=== PATIENT | female | born 1980 | race Asian ===

== ENCOUNTER 2017-02-11 14:07 | Inpatient (IN) | payer SELFPAY ==
[~2017-02-11] VITALS: Ht 163 cm; Wt 59.9 kg
[2017-02-11] MEDS ORDERED: LACTATED RINGERS 1,000 ML IV SCH (14:28)
[2017-02-11] MEDS ORDERED: CITRIC ACID/SODIUM CITRATE 30 ML UDC PO SCH (14:30)
[2017-02-11 14:38] VITALS: BP 112/81
[2017-02-11 15:26] LABS: BASOPHILS # (AUTO) 0.1 K/uL (0.00-0.22); BASOPHILS % (AUTO) 1.2 % (0.0-2.0); EOSINOPHILS # (AUTO) 0.1 K/uL (0-0.4); HEMOGLOBIN 11.6 g/dL (12.0-16.0); LYMPHOCYTES # (AUTO) 1.5 K/uL (2.5-16.5); LYMPHOCYTES % (AUTO) 21.6 % (20.5-51.1); MEAN CORPUSCULAR HEMOGLOBIN 31 pg (27-31); MEAN CORPUSCULAR HGB CONC 33 g/dL (33-37); MEAN CORPUSCULAR VOLUME 93 fL (80-94); MONOCYTES # (AUTO) 0.5 K/uL (0.8-1.0); MONOCYTES % (AUTO) 7.2 % (1.7-9.3); NEUTROPHILS # (AUTO) 4.6 K/uL (1.8-7.7); PLATELET COUNT (AUTO) 180 K/uL (140-450); RED BLOOD CELL COUNT(AUTO) 3.76 MIL/uL (4.20-5.40); RED CELL DISTRIBUTION WIDTH 13.4 % (11.6-13.7); WHITE BLOOD COUNT (AUTO) 6.8 K/uL (4.8-10.8)
[2017-02-11 15:32] LABS: APPEARANCE,URINE CLOUDY (CLEAR); BILIRUBIN,URINE NEGATIVE (NEGATIVE); BLOOD, URINE NEGATIVE (NEGATIVE); COLOR,URINE YELLOW (YELLOW); LEUKOCYTE ESTERASE ,URINE NEGATIVE (NEGATIVE); NITRITE, URINE NEGATIVE (NEGATIVE); UGLUCOSE NEGATIVE (NEGATIVE)
[2017-02-11 15:41] LABS: ALBUMIN 3.1 g/dL (3.4-5.0); ANION GAP 11.6 (8-16); CARBON DIOXIDE 28.6 mmol/L (21-32); CREATININE 0.7 mg/dL (0.6-1.3); POTASSIUM 4.2 mmol/L (3.5-5.1); TOTAL BILIRUBIN 0.7 mg/dL (0.0-1.0)
[2017-02-11] MEDS ORDERED: SIMETHICONE 80 MG TAB.CHEW PO PRN (16:50)
[2017-02-11] MEDS ORDERED: METHYLERGONOVINE 0.2 MG/ML AMP IM PRN (16:50)
[2017-02-11] MEDS ORDERED: MEASLES, MUMPS, AND RUBELLA 1 VIAL SQVAC PRN (16:50)
[2017-02-11] MEDS ORDERED: TEMAZEPAM 15 MG CAP PO PRN (16:50)
[2017-02-11] MEDS ORDERED: HYDROcodone/APAP 5/325 MG 1 TAB TAB PO PRN (16:50)
[2017-02-11] MEDS ORDERED: TRIMETHOBENZAMIDE 200 MG/2 ML SYR IM PRN (16:50)
[2017-02-11] MEDS ORDERED: oxyCODONE/APAP 5/325 MG 1 TAB TAB PO PRN (16:50)
[2017-02-11] MEDS ORDERED: IBUPROFEN 800 MG TAB PO PRN (16:50)
[2017-02-11] MEDS ORDERED: MORPHINE PRES FREE 10 MG/10 ML AMP IV ONE (17:26)
[2017-02-11] MEDS ORDERED: ONDANSETRON 4 MG/2 ML VIAL ONE (17:57)
[2017-02-11] MEDS ORDERED: OXYTOCIN 10 UNITS/ML VIAL ONE (18:02)
[2017-02-11] MEDS ORDERED: diphenhydrAMINE 50 MG/ML VIAL IVP PRN (18:15)
[2017-02-11] MEDS ORDERED: OXYTOCIN 20 UNITS in LACTATED RINGERS 1,000 ML IV SCH (18:15)
[2017-02-11] MEDS ORDERED: ONDANSETRON 4 MG/2 ML VIAL IVP PRN (18:15)
[2017-02-11] MEDS ORDERED: NALOXONE 0.4 MG/ML VIAL IVP PRN ×2 (18:15)
[2017-02-11] MEDS ORDERED: KETOROLAC 30 MG/ML VIAL IVP PRN (18:15)
[2017-02-11] MEDS ORDERED: OXYTOCIN 20 UNITS/LR PREMIX 1,000 ML IV ONE (18:49)
[2017-02-11] MEDS ORDERED: diphenhydrAMINE 50 MG/ML VIAL ONE (18:49)
[2017-02-11] MEDS ORDERED: METHYLERGONOVINE 0.2 MG/ML AMP ONE (19:39)
[2017-02-11 20:26] LABS: RAPID PLASMA REAGIN NON-REACTIVE (Non Reactiv)
[2017-02-11] MEDS: DOCUSATE SOD/SENNA 50/8.6 MG 1 TAB PO SCH (21:00)
[2017-02-11] MEDS ORDERED: INFLUENZA VIRUS VACCINE QUAD 0.5 ML SYR IMVAC SCH (22:00)
[2017-02-12] MEDS ORDERED: OXYTOCIN 10 UNITS/ML VIAL ONE ×2 (00:07→10:59)
[2017-02-12] MEDS: OXYTOCIN 20 UNITS in LACTATED RINGERS 1,000 ML IV SCH ×2 (02:10→11:02)
[2017-02-12 08:04] LABS: BASOPHILS % (AUTO) 0.4 % (0.0-2.0); EOSINOPHILS % (AUTO) 0.4 % (0.0-4.0); HEMATOCRIT 28.9 % (36-48); HEMOGLOBIN 9.6 g/dL (12.0-16.0); LYMPHOCYTES # (AUTO) 1.3 K/uL (2.5-16.5); MEAN CORPUSCULAR HEMOGLOBIN 31 pg (27-31); MEAN CORPUSCULAR HGB CONC 33 g/dL (33-37); MEAN CORPUSCULAR VOLUME 94 fL (80-94); MONOCYTES # (AUTO) 0.6 K/uL (0.8-1.0); MONOCYTES % (AUTO) 5.9 % (1.7-9.3); NEUTROPHILS % (AUTO) 81.3 % (42.2-75.2); PLATELET COUNT (AUTO) 156 K/uL (140-450); RED BLOOD CELL COUNT(AUTO) 3.07 MIL/uL (4.20-5.40); RED CELL DISTRIBUTION WIDTH 13.3 % (11.6-13.7); WHITE BLOOD COUNT (AUTO) 10.9 K/uL (4.8-10.8)
[2017-02-12] MEDS ORDERED: IBUPROFEN 800 MG TAB PO PRN (12:00)
[2017-02-12] MEDS ORDERED: oxyCODONE/APAP 5/325 MG 1 TAB TAB PO PRN (12:00)
[2017-02-12] MEDS: HYDROcodone/APAP 5/325 MG 1 TAB TAB PO PRN (19:38)
[2017-02-12] MEDS: DOCUSATE SOD/SENNA 50/8.6 MG 1 TAB PO SCH (21:06)
[2017-02-13] MEDS: HYDROcodone/APAP 5/325 MG 1 TAB TAB PO PRN ×2 (09:50→21:04)
--- NOTE | 2017-02-13 09:50 | NUR ---
PATIENT HAS BEEN SCREENED AND CATEGORIZED LOW NUTRITION RISK. PATIENT WILL BE SEEN WITHIN 7 DAYS OF ADMISSION. 02/18/[address]
[2017-02-13] MEDS: DOCUSATE SOD/SENNA 50/8.6 MG 1 TAB PO SCH (21:05)
[2017-02-14] MEDS: HYDROcodone/APAP 5/325 MG 1 TAB TAB PO PRN (08:01)
== END 2017-02-14 15:00 | disposition home or self-care (01) | DRG 766 ==
LOC: MLD 14:14 → MFCC 20:05
PROVIDERS: ADMIT Obstetrics & Gynecology; ATTEND Obstetrics & Gynecology
PROC: 10D00Z1 Extraction of Products of Conception, Low, Open Approach (ICD-10-PCS; principal; 2017-02-11 17:20)
DX: O34.211 Maternal care for low transverse scar from previous cesarean delivery (principal); Z37.0 Single live birth; Z3A.00 Weeks of gestation of pregnancy not specified
CPT/HCPCS: 36415; 80053; 81003; 85025; 86592; 86886; 86900; 86901; J0690; J1200; J1885; J2210; J2270; J2405; J2590; J7060; J7120